=== PATIENT | male | born 1995 | race Two or more races ===

== ENCOUNTER 2024-11-04 01:31 | Emergency (ER) | payer OTHER ==
[~2024-11-04] VITALS: Ht 180.3 cm; Wt 74.8 kg
[2024-11-04 01:55] VITALS: BP 125/78; O2SAT 100
[2024-11-04] MEDS ORDERED: KETOROLAC TROMETHAMINE 60 MG VIAL IM ONE ×2 (02:15→02:36)
[2024-11-04] MEDS ORDERED: TRAMADOL HCL 50 MG TABLET PO ONE (02:15)
[2024-11-04] MEDS ORDERED: IBUPROFEN800 MG PO (03:24)
== END 2024-11-04 03:48 | disposition home or self-care (01) ==
LOC: ER 01:31
DX: S52.92XA Unspecified fracture of left forearm, initial encounter for closed fracture (principal); W18.39XA Other fall on same level, initial encounter; Y93.02 Activity, running; Y92.89 Other specified places as the place of occurrence of the external cause; S52.292A Other fracture of shaft of left ulna, initial encounter for closed fracture